=== PATIENT | female | born 1960 | race Caucasian/White ===

== ENCOUNTER 2016-11-25 11:25 | Day surgery (SDC) | payer BC ==
[~2016-11-25] VITALS: Ht 160 cm; Wt 113.8 kg
[2016-11-25] MEDS ORDERED: ASPIRIN (11:56)
[2016-11-25] MEDS ORDERED: CARDIZEM (11:56)
[2016-11-25] MEDS ORDERED: IBUPROFEN (11:56)
[2016-11-25 11:58] VITALS: Ht 160 cm; Wt 113.8 kg
[2016-11-25 12:10] VITALS: BP 137/79; PULSE 73; RESP 16
[2016-11-25] MEDS ORDERED: CARV12.579 PO (12:23)
[2016-11-25] MEDS ORDERED: PROPOFOL 40 ML ONE (13:32)
[2016-11-25 13:53] VITALS: BP 147/76; PULSE 68; RESP 12
--- NOTE | 2016-12-23 09:41 | GILP ---
DATE OF PROCEDURE: 12/10/2016 PROCEDURES PERFORMED: 1. Esophagogastroduodenoscopy and biopsy. 2. Colonoscopy and biopsy. SURGEON: Steven Leslie MD. PREOPERATIVE DIAGNOSES: 1. Positive occult blood in stool. 2. Upper abdominal pain. POSTOPERATIVE DIAGNOSES: 1. Hiatal hernia. 2. Gastroesophageal reflux disease. 3. Gastritis with erosions. 4. Gastric mucosal biopsies were positive for Helicobacter pylori test. 5. Colonoscopy all the way to the cecum. 6. Small sigmoid colon polyp was removed using the biopsy forceps. 7. Diverticulosis of the colon. 8. Internal hemorrhoids. IMPRESSIONS FOR PROCEDURE: Ms. Jessica Dial is a 56- year-old female patient who was noted to have positive occult blood in the stool. The patient also had upper abdominal pain. The patient was scheduled for endoscopy and colonoscopy for further evaluation. The procedures and possible complications were well explained to the patient. The patient understood and consented to the procedure. DESCRIPTION OF PROCEDURE: Under the influence of anesthesia the gastroscope was carefully introduced into the esophagus and under direct vision it was advanced to the stomach, into the pylorus, into the duodenal bulb and descending duodenum. Findings esophagus, the patient had a hiatal hernia and gastroesophageal reflux disease. The stomach, the patient had gastritis with erosions. Gastric mucosal biopsies were taken for Helicobacter pylori test and it was positive. The duodenum was normal. The colonoscope was carefully introduced in the rectum and under direct vision it was advanced all the way to the cecum. Findings, the patient had a small colon polyp and it was removed using the biopsy forceps. The patient was noted to have diverticulosis of the colon. She had internal hemorrhoids. She tolerated the procedures very well. There was no complications from the procedures. At the end of procedure she was awake and stable and she was discharged home in the care of her family. IMPRESSION: Please see postoperative diagnosis. PLAN: 1. Zantac 300 mg p.o. b.i.d. for 14 days, Doxycycline 100 mg p.o. b.i.d. for 14 days, Flagyl 500 mg p.o. b.i.d. for 14 days, Pepto-Bismol 2 tablets p.o. q.8 hours. 2. I await histopathology report on the colon polyps. 3. Next screening colonoscopy in 10 years. Dictated By: MD DEBORAH Ruiz/gwen/bart /Document#: [id number] CC: Steven Leslie MD;*[facility]*
== END 2016-11-25 14:51 | disposition home or self-care (01) ==
LOC: GIL 11:25
PROVIDERS: ATTEND Internal Medicine Gastroenterology
DX: K92.1 Melena (principal); K44.9 Diaphragmatic hernia without obstruction or gangrene; K21.9 Gastro-esophageal reflux disease without esophagitis; D12.5 Benign neoplasm of sigmoid colon; K57.90 Diverticulosis of intestine, part unspecified, without perforation or abscess without bleeding; K64.8 Other hemorrhoids; I10 Essential (primary) hypertension; E66.01 Morbid (severe) obesity due to excess calories; Z68.41 Body mass index [BMI] 40.0-44.9, adult
CPT/HCPCS: 43239; 45380; 87081; 88305; Z7610